=== PATIENT | female | born 1940 | race African-American/Black ===

== ENCOUNTER 2018-12-25 21:25 | Inpatient (IN) ==
[2018-12-25] MEDS ORDERED: ROCEPHIN 1 GM in NS 50 ML IV ONE (21:40)
--- NOTE | 2018-12-25 22:05 | PROVIDER DOCUMENTATION ---
This chart was entered by Lacy Kendrick Scribe, acting as scribe for Dasha James CRNP. HPI-Syncope/Dizziness - General Chief Complaint: Syncope Stated Complaint: Syncope Time Seen by Provider: 12/25/18 21:28 Source: patient, family Allergies/Adverse Reactions: Patient Allergies Allergy/AdvReac Type Severity Reaction Status Date / Time hydrocodone bitartrate * Allergy NAUSEA/VOMI Verified 12/25/18 14:47 [From Lortab] TING Sulfa (Sulfonamide Allergy NAUSEA/VOMI Verified 12/25/18 14:47 Antibiotics) TING Home Medications: Home Medication List Medication Instructions Recorded Confirmed Last Taken Type Donepezil HCl 5 mg PO DAILY 04/13/14 06/02/15 06/02/15 History Fluticasone Propionate [Flovent 50 mcg IH DAILY 04/13/14 06/02/15 06/02/15 History Diskus] Acetaminophen with Codeine 1 each PO Q6H PRN 06/02/15 06/02/15 06/02/15 History [Tylenol with Codeine #3] Amlodipine Besylate [Norvasc] 10 mg PO DAILY 06/02/15 06/02/15 06/02/15 History Loratadine [Claritin] 10 mg PO DAILY 06/02/15 06/02/15 06/02/15 History Nebivolol [Bystolic] 5 mg PO DAILY 06/02/15 06/02/15 06/02/15 History Omeprazole 40 mg PO DAILY 06/02/15 06/02/15 06/02/15 History Amoxicillin/Potassium Clav 1 ea PO BID #20 tab 07/05/17 Unknown Rx [Augmentin 875-125 Tablet] Levofloxacin [Levaquin] 500 mg PO DAILY #7 tab 12/25/18 Unknown Rx - History of Present Illness-Syncope/Dizzy Nature of Presenting Problem: 78 yof presents w/daughter at bedside w/cc pt daughter is main historian (pt has hx of dementia). pt arrived via [facility] ems. pt has had trouble walking for 1 week, having tremors, headache, been confused, weakness, no appetite 4-5 days and abd soreness. pt was seen earlier today, in ED, for similar symptoms, given lisinopril and metoprolol for bp and diagnosed w/uti. daughter reports they stopped by pharmacy to get rx filled and when they arrived home (30 mins after leaving ED), patient was extremely weak and had difficulty getting out of vehicle. daughter reports patient got inside and went to go to the bathroom and became weak and passed out. daughter reports she was able to catch patient and ease her down so she did not hit her head. daughter is concerned because until 1 week ago, patient was able to ambulate with cane, and now not able to ambulate d/t weakness. per chart review, patient's PCP was consulted earlier today regarding plan of care and requested patient be d/c'd home and follow up with PCP tomorrow. blood sugar per EMS 170. If witnessed syncope, by whom?: Daughter Prior Episodes: reports: no prior history Onset/Duration: reports: this afternoon Timing: reports: still present Position/Activity at time of episode: reports: standing Symptoms prior to episode: reports: lightheaded Context: reports: lost consciousness. denies: incontinent of urine, incontinent of stool, breathing stopped Loss of Consciousness: brief (seconds) Location of injury. (If syncope resulted in an injury.): reports: none Current Symptoms: reports: weakness, dizzy Similar symptoms previously: reports: workup for same problem Recently Seen Here or By Another Healthcare Provider: Yes (Seen this afternoon for similar complaints) - Dizziness Severity in ED: reports: moderate Dizziness Related Current/Associated Symptoms: reports: weakness, lightheaded Any recent trauma/injury?: reports: none Modifying Factors: improves with: lying down. worse with: standing position Patient usually:: reports: uses a cane Review of Systems - Adult - REVIEW OF SYSTEMS - ADULT Constitutional: reports: see HPI, fatique, other (weakness, confusion). denies: chills, fever, night sweats Eyes: reports: no symptoms reported Ears, Nose, Mouth & Throat: reports: no symptoms reported. denies: ear pain, epistaxis, sinus problem, hoarseness, throat pain Cardiovascular: reports: no symptoms reported. denies: chest pain, orthopnea, palpitations Respiratory: reports: no symptoms reported. denies: dyspnea on exertion, pleurisy, shortness of breath Gastrointestinal: reports: see HPI, abdominal pain (ruq), poor appetite. denies: diarrhea, nausea, rectal bleeding, vomiting Genitourinary: reports: no symptoms reported Musculoskeletal: reports: no symptoms reported Integumentary: reports: see HPI, other (clammy to touch). denies: mole changes, nail changes, rash Neurological: reports: see HPI, headache/migraines, loss of balance, syncope, tremors. denies: numbness, seizure, slurred speech Psychiatric: reports: no symptoms reported Endocrine: reports: no symptoms reported All Other Systems: Reviewed and Negative Past History - Adult - PAST MEDICAL HISTORY-ADULT Review of Records: reports: Old Records Reviewed, Nursing Assessment Review, Medications Reviewed, Social history reviewed & non-contributory. Major Childhood Illnesses: reports: denies history Cardiovascular: reports: HTN Respiratory: reports: denies history Gastrointestinal: reports: denies history Obstetrical/Gynecological: reports: denies history Genitourinary: reports: dialysis Musculoskeletal: reports: denies history Neurological: reports: dementia Endocrine/Immune: reports: anemia, Diabetes (borderline) Other Conditions: reports: denies history - PRIOR SURGERIES/PROCEDURES Surgical/Procedure History: reports: cholecystectomy, hysterectomy, back/neck - PRIOR HOSPITALIZATIONS Prior Hospitalizations: reports: none - IMMUNIZATION STATUS Childhood Immunizations: See Nurse Assessment Flu Vaccine: See Nurse Assessment - FAMILY HISTORY Family History: reviewed, not pertinent - SOCIAL HISTORY Smoking: non-smoker Substance Use: none/never Living Situation: alone (Has caregiver during the day) Physical Exam-General - PHYSICAL EXAM-ADULT Initial Vital Signs Reviewed: Yes - CONSTITUTIONAL General Appearance: alert, mild distress, thin. negative: lethargic, slow to respond, obtunded - EYES Eyes: PERRL/EOMI, pink conjunctivae - HEAD, EARS, NOSE, MOUTH & THROAT HENMT: normocephalic/atraumatic, moist mucous membranes - NECK Neck: full range of motion, supple, normal inspection - RESPIRATORY Respiratory: chest non-tender, lungs clear, normal breath sounds, no pleuratic chest pain, no respiratory distress, no accessory muscle use - CARDIOVASCULAR Cardiovascular: no gallop, no murmur, bradycardia (59) - GASTROINTESTINAL (ABDOMEN) Abdominal Exam: normal bowel sounds, soft, no organomegaly, no pulsatile mass, tenderness (mild TTP RUQ). negative: non tender, abdominal bruit, abnormal bowel sounds, distended, guarding, rigid, rebound, Means's sign - LYMPHATIC Lymphatic: no adenopathy - MUSCULOSKELETAL Back Exam: normal inspection, no vertebral tenderness Extremity: non-tender, normal inspection Peripheral Pulses: radial (R): 2+, radial (L): 2+ - SKIN Integumentary: normal color, normal turgor, warm/dry - NEUROLOGIC Neurologic: grossly normal, no motor/sensory deficits - PSYCHIATRIC Psych/Mental Status: normal mood/affect, normal thought content, normal thought process, oriented x 3 Progress - PLAN OF CARE/RESULTS Progress/Plan/Lab Results: Vital Signs - 8 hr 12/25/18 22:58 Temperature 98.3 F Pulse Rate 56 L Respiratory Rate 18 Blood Pressure 177/78 O2 Sat by Pulse Oximetry 99 Laboratory Results - last 24 hr 12/25/18 21:51 POC Glucose 163 H Orders Category Date Time Status Resuscitation Status Routine Care 12/25/18 23:[address] HEAD W/O CONTRAST [CT] Stat Exams 12/25/18 23:24 Taken 0.9% Sodium Chloride Inj [Ns] 500 ml Med 12/25/18 22:06 Discontinued IV 999 mls/hr CefTRIAXONE [Rocephin] 1 gm Med 12/25/18 21:40 Discontinued 0.9% Sodium Chloride Inj [Ns] 50 ml IV NOW EKG [EKG] Stat Ther 12/25/18 21:40 Ordered Transfer/Admit Order [TRANSFER] Routine Transfer 12/25/18 23:26 Ordered - EKG 1 Time of EKG reading by physician:: 22:56 EKG Read and Signed by:: Goran Clements EKG Interpretation (*Must complete 3 of following elements*): Abnormal (Borderline) Rate: 55 Rhythm: SB w/ short CO [place]: normal QRS: LVH (moderate voltage criteria for LVH, may be normal variant) CO Interval: shortened ST Wave: normal - CT/MRI 1 CT Study: Head Impression: See EMR Report ("No acute intracranial abnormalities.") - CONSULTS/PCP/HOSPITALIST Notification #1 *Consult/PCP/Hospitalist*: Derrick Hughesist Time Discussed: 23:20 Reason/Comments: Syncope, weakness, UTI Consult Disposition: Admit Departure - Departure Date of Disposition Decision: 12/25/18 Time of Disposition Decision: 23:20 DIAGNOSIS: Weakness UTI (urinary tract infection) Qualifiers: Urinary tract infection type: site unspecified Hematuria presence: without hematuria Qualified Code(s): N39.0 - Urinary tract infection, site not specified Syncope Qualifiers: Syncope type: unspecified Qualified Code(s): R55 - Syncope and collapse Disposition: ADMITTED INPATIENT 09 Certified Medical Emergency: Emergent Condition: Stable Referrals and Follow-Ups: None,PCP [Primary Care Provider] - Jin Santamaria MD [ACTIVE STAFF PHYSICIAN] - Work Excuses: Return to School/Parent Work - Critical Care Note This patient required my direct & personal management of CC.: No Attestation - Physician/ CARLOS Attestation Patient care was provided by Advanced Practice Provider:: Yes Advanced Practice Provider:: Dasha James Advanced Practice Provider documentation review:: The Mid-level provider documentation, treatment plan and medical decision making was reviewed by the physician who agrees with all treatment and medical decision making by the MLP. The physician spent face to face time with patient:: No Advanced Practice Provider documentation review:: Supervising physician onsite and consulted in the evaluation and care of this patient. The physician did not have a face to face encounter with the patient. This chart was documented by the indicated scribe, (Lacy Kendrick Scribe) and accurately reflects the services I performed and decisions made by me, Dasha James CRNP, as attested by the provider's signature.
[2018-12-25] MEDS ORDERED: NS 500 ML IV ONE (22:06)
[2018-12-26] MEDS ORDERED: NS 1,000 ML IV ONE (01:15)
--- NOTE | 2018-12-26 04:20 | EKG Report ---
Test Performed on : 12/25/2018 10:55:04 PM Test Reason : SB Blood Pressure : / mmHG Vent. Rate : 055 BPM Atrial Rate : 055 BPM P-R Int : 110 ms QRS Dur : 086 ms QT Int : 498 ms P-R-T Axes : 056 029 074 degrees QTc Int : 476 ms Sinus bradycardia. with short ME Moderate voltage criteria for LVH, may be normal variant Borderline ECG When compared with ECG of 18-AUG-2011 08:06, T wave amplitude has decreased in Anterior leads Confirmed by James LEIJA, Zafar ([id number]), proposal editor Cee Redding ([id number]) on 12/30/2018 1:55:21 PM
--- NOTE | 2018-12-26 05:59 | Diag Imaging Result Doc PS360 ---
EXAM: CT HEAD W/O CONTRAST HISTORY: Syncope TECHNIQUE: CT brain without contrast COMPARISON: None. FINDINGS: No parenchymal hemorrhage. No epidural or subdural hematoma. No subarachnoid hemorrhage. There are chronic microvascular ischemic changes. No mass identified on this noncontrasted exam. No hydrocephalus. Left maxillary mucosal thickening.. IMPRESSION: 1.No hemorrhage 2.Chronic microvascular ischemic changes 3.A preliminary report was given at 12:19 AM This exam was performed using automated exposure control, adjustment of mA or kV according to patient size, and/or use of iterative reconstruction technique. Electronically signed by Jose Castellon 12/26/2018 5:57 AM
[2018-12-26 06:53] LABS: BASO# 0.01 X1000 (0.0-0.2); BASO% 0.1 % (0.0-0.8); EOS# 0.01 X1000 (0.0-0.7); EOS% 0.1 % (0.0-10.0); HEMATOCRIT 37.4 % (37.0-47.0); HEMOGLOBIN 11.5 g/dL (12.0-16.0); IMM GRAN# 0.01 X1000 (0.0-0.04); IMM GRAN% 0.1 % (0.0-0.5); LYMPH# 2.89 X1000 (1.2-3.4); LYMPH% 43.3 % (20.5-51.1); MCH 27.4 PG (27-31); MCHC 30.7 g/dL (33-37); MONO# 0.86 X1000 (0.11-0.59); MONO% 12.9 % (1.7-9.3); MPV 11.1 FL (7.4-10.4); NEUT% 43.5 % (42.2-75.2); PLT 136 X1000 (130-400); RDW 15.4 % (11.5-14.5); WBC 6.68 X1000 (4.8-10.8)
[2018-12-26 07:26] LABS: ALBUMIN 3.6 g/dL (3.5-5.0); CALCIUM 8.5 mg/dL (8.8-10.2); POTASSIUM 4.1 mmol/L (3.5-5.1); TOTAL BILIRUBIN 0.2 mg/dL (0.20-1.00); TOTAL PROTEIN 6.3 g/dL (6.3-8.3)
--- NOTE | 2018-12-26 09:06 | Diag Imaging Result Doc PS360 ---
EXAM: CHEST-PORTABLE HISTORY: syncope TECHNIQUE: Single view of the chest was performed portably. COMPARISON: 06/02/2015 FINDINGS: The cardiomediastinal silhouette is within normal limits. The pulmonary vasculature is not congested. No infiltrate, effusion, or pneumothorax is appreciated. There are degenerative changes bilateral shoulders and postsurgical change right shoulder. IMPRESSION: No acute cardiopulmonary abnormality is identified. Electronically signed by Erin Espinosa 12/26/2018 9:04 AM
[2018-12-26] MEDS: ARICEPT PO SCH ×2 (09:20→20:19)
[2018-12-26] MEDS: PRINIVIL PO SCH (09:20)
[2018-12-26] MEDS: NAMENDA XR PO SCH (09:20)
[2018-12-26] MEDS: LEXAPRO PO SCH (09:21)
[2018-12-26] MEDS: TOPROL XL PO SCH (09:21)
[2018-12-26] MEDS: FOLIC ACID PO SCH (09:21)
[2018-12-26] MEDS: ROCEPHIN 1 GM in NS 50 ML IV SCH (09:21)
--- NOTE | 2018-12-26 10:13 | HISTORY AND PHYSICAL ---
PRIMARY CARE PHYSICIAN: Dr. Jin Santamaria CHIEF COMPLAINT: Syncope. HISTORY OF PRESENT ILLNESS: Ms. Bailey is a pleasant 78-year-old female with a history of hypertension, dementia of Alzheimer's type, severe osteoarthritis, and folate deficiency, who presents with syncope. She actually came to the ER here at [facility] earlier yesterday for weakness in the lower extremities and inability to walk. She was ultimately diagnosed with a urinary tract infection and acute hypertension and was discharged with antibiotics and antihypertensives. She was taken home by her daughters, and when she did get home, she got out of the car and was again dizzy and weak. They took her into the house, and she was able to sit down on the commode and go to the bathroom; however, when she stood up and started walking away, she lost consciousness and fell. Her daughters were there and were able to catch her, and they witnessed the event. They report that she was unconscious for about 10 minutes but always had a pulse and was breathing on her own. They called 911, and she was brought to the ER here at which time she had a head CT done which did not show anything acute. Her laboratory data was also unremarkable. She is fairly hypertensive, however, with blood pressure ranging from the 170s to 190s systolically and is slightly bradycardic in the 50s. Currently she complains of dysuria and urinary retention. She has not had any urine out this morning despite being on IV fluids. She denies any chest pain or fever. No shortness of breath. No lower extremity edema or orthopnea. Prior to losing consciousness, she did report some dizziness but no chest pain. She did not hit her head or have any loss of bowel or bladder continence. She will be admitted for further treatment and evaluation. PAST MEDICAL HISTORY: 1. Alzheimer's type dementia. 2. Hypertension. 3. Folate deficiency. PAST SURGICAL HISTORY: She has had a right rotator cuff repair, hysterectomy, cholecystectomy, partial colon resection due to small bowel obstruction, and lumbar spine surgery. She has also had an L spine stimulator for pain. SOCIAL HISTORY: She lives at home alone, but she has a daily caregiver, and one of her daughters stays with her on a daily basis. She is . There is no tobacco, alcohol or drug use. FAMILY HISTORY: Noncontributory. REVIEW OF SYSTEMS: Limited; however, a 10-point review of systems was obtained and found to be negative with the exception of the HPI. HOME MEDICATIONS: Aricept 10 mg b.i.d., folic acid 1 mg daily, Lexapro 10 mg daily, memantine 28 mg p.o. daily, Seroquel 50-100 mg p.o. at bedtime, Toprol-XL 50 mg daily, Levaquin 500 mg p.o. daily for 7 days. ALLERGIES: Hydrocodone and sulfonamides. PHYSICAL EXAMINATION: VITAL SIGNS: Blood pressure is 176/63, heart rate 60, respiratory rate 18, O2 saturation is 100% on room air, temperature is 97.9. GENERAL: This is an elderly 78-year-old female lying in hospital bed in no acute distress. NEUROLOGICAL: She is awake and alert, however, confused to time and place. She follows commands without focal deficits. Random alternating movements in the hands are sluggish. She also has somewhat of a resting tremor. HEENT: Head is atraumatic and normocephalic. Pupils are equal, round and reactive to light. Oral mucosa is slightly dry. NECK: Trachea is midline. There is no JVD. CHEST: Clear to auscultation bilaterally. CARDIOVASCULAR: Regular rate and rhythm. S1 and S2 noted. GASTROINTESTINAL: Soft, nondistended. Slightly tender in the suprapubic area. Bowel sounds are active. EXTREMITIES: No edema. Pulses 1+ bilaterally. DIAGNOSTIC DATA: Chest x-ray is negative. Head CT with chronic changes, nothing acute. EKG shows sinus bradycardia with nonspecific T changes. WBC is 6.68, hemoglobin 11.5, hematocrit 37.4, platelet count 136. Sodium is 144, potassium 4.1, chloride 109, CO2 is 25, anion gap 10, BUN is 23, creatinine 1, glucose 109. LFTs negative. Protein 6.3, albumin 3.6. ASSESSMENT AND PLAN: 1. Syncope. Appears to be volume mediated or possibly vasovagal. She has no focal deficits. No chest pain. She is slightly dehydrated on physical exam, and her daughters report that she rarely drinks water. She does have evidence of urinary retention which could be exacerbating the issue. We will check cardiac enzymes and hydrate her. We will also treat underlying urinary retention and urinary tract infection. 2. Urinary tract infection and urinary retention. We are checking a bladder scan now and will likely place a Aviles catheter and check a renal ultrasound to make sure there is no obstruction. Continue IV fluids. We will evaluate all of her home medications to make sure there is none that cause urinary retention. 3. Hypertension. Continue antihypertensives. Add p.r.n. if necessary intravenously. 4. Dementia. Stable. Continue home medications. 5. DVT prophylaxis with Lovenox. Further recommendations to follow. Dictated by JARETT Liang for Fitz Brown MD cc: JARETT Liang MD Micah A. Howard, MD [facility] HOSPITALGr[facility]
[2018-12-26] MEDS: LOVENOX SUBQ SCH (10:17)
[2018-12-26 10:21] LABS: HEMOGLOBIN A1C 6.2 % (4.8-6.0)
--- NOTE | 2018-12-26 14:17 | Diag Imaging Result Doc PS360 ---
EXAM: US RENAL 2 (RETROPER) COMPLETE HISTORY: urinary retention TECHNIQUE: Renal ultrasound COMPARISON: 04/13/2014 FINDINGS: The right kidney measures 6.8 x 4.2 x 4.3 cm. Normal renal echotexture. No stone or hydronephrosis. No mass. The urinary bladder is distended and is normal. The left kidney measures 7.4 x 4.3 x 5.3 cm. Normal cortical thickness. No stone or hydronephrosis. No solid renal mass. There is a small cyst in the lower pole. IMPRESSION: The kidneys measure small, but no other abnormality. Electronically signed by Jose Castellon 12/26/2018 2:14 PM
[2018-12-26] MEDS: APRESOLINE IV PRN (17:31)
[2018-12-26] MEDS ORDERED: SEROQUEL PO SCH (21:00)
--- NOTE | 2018-12-26 22:47 | PROGRESS NOTE ---
DATE: 12/26/2018 Patient presented to the hospital with a syncopal episode. Daughter notes that she is normally up walking, talking and no complaints. However, over the past 2 days she has had a decreased physical activity. Decreased mental alertness. She has been confused and had a syncopal episode. PLAN: We will admit patient to the hospital. Continue her home medications, follow her blood sugars, certainly appears as though she has sepsis likely from urinary tract source. We will place her on antibiotics and will follow. cc: Fitz Brown MD
[2018-12-27] MEDS: APRESOLINE IV PRN (05:32)
[2018-12-27] MEDS ORDERED: NS 1,000 ML IV SCH (06:30)
[2018-12-27 06:43] LABS: HEMATOCRIT 35.6 % (37.0-47.0); HEMOGLOBIN 11.3 g/dL (12.0-16.0); MCH 28.2 PG (27-31); MCHC 31.7 g/dL (33-37); MCV 88.8 FL (81-99); MPV 10.9 FL (7.4-10.4); RBC 4.01 XMIL (4.2-5.4); RDW 15.3 % (11.5-14.5); WBC 8.75 X1000 (4.8-10.8)
[2018-12-27 08:09] LABS: CALCIUM 8.8 mg/dL (8.8-10.2); CREATININE 1.1 mg/dL (0.5-0.9); POTASSIUM 3.8 mmol/L (3.5-5.1)
[2018-12-27] MEDS: TOPROL XL PO SCH (09:41)
[2018-12-27] MEDS: ARICEPT PO SCH (09:41)
[2018-12-27] MEDS: LEXAPRO PO SCH (09:41)
[2018-12-27] MEDS: PRINIVIL PO SCH (09:41)
[2018-12-27] MEDS: FOLIC ACID PO SCH (09:41)
[2018-12-27] MEDS: NAMENDA XR PO SCH (09:42)
[2018-12-27] MEDS: LOVENOX SUBQ SCH (09:45)
[2018-12-27] MEDS: ROCEPHIN 1 GM in NS 50 ML IV SCH (10:01)
[2018-12-27 12:34] VITALS: BP 142/50
[2018-12-27 15:23] LABS: BILIRUBIN URINE NEGATIVE (NEGATIVE); BLOOD URINE NEGATIVE (NEGATIVE); CLARITY CLEAR (CLEAR); COLOR YELLOW; GLUCOSE URINE NEGATIVE (NEGATIVE); KETONE URINE TRACE mg/dL (NEGATIVE); LEUKOCYTES URINE TRACE (NEGATIVE); NITRITE URINE NEGATIVE (NEGATIVE); PH URINE 6.5; PROTEIN URINE NEGATIVE (NEGATIVE); SP GRAVITY URINE 1.015; UROBILINOGEN URINE NORMAL
[2018-12-27 15:31] LABS: URINE SOURCE CLEAN CATCH
[2018-12-27 15:32] LABS: URINE BACTERIA 1+ /HFP; URINE CAST NONE SEEN /LPF; URINE CRYSTAL NONE SEEN /HPF; URINE EPITHELIAL CELLS >10 /HPF (<10); URINE RBC <10 /HPF (<10); URINE WBC <10 /HPF (<10); URINE YEAST NONE SEEN /HPF
--- NOTE | 2018-12-27 21:02 | DISCHARGE SUMMARY ---
ADMISSION DATE: 12/26/2018 DISCHARGE DATE: 12/27/2018 DISCHARGE DIAGNOSES: 1. Dementia. 2. Syncope. 3. Hypertension. 4. Folate deficiency. 5. 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 6. Adult failure to thrive. CONSULTATIONS: None. PROCEDURES: None. BRIEF HOSPITAL COURSE: The patient is a 78-year-old female who presented to the hospital secondary to a syncopal episode, which the daughter had noted that she was unconscious for 10 minutes. Thankfully, all of her labs everything was normal. I am unsure if this was 10 minutes by the clock or 10 minutes by perception. She has had zero episodes of syncope during the hospital. The daughter now notes that Ms. Bailey has had continued gradual decline in her memory and as of late, seems to be worse. She seems to be more combative, agitated at night. As all of her labs have been normal, telemetry has been normal. We will discharge Ms. Bailey home. Certainly afraid that if we keep her in the hospital another night for no more than observation, that we will have to sedate Ms. Bailey, which I do not believe will be in her best interest. DISPOSITION: She will be discharged home. She will follow up outpatient with her primary care as needed. Discussed with the family the usual course of Alzheimer's type dementia and attempted to answer questions. TIME SPENT: Greater than 30 minutes was spent in total care. cc: Fitz Brown MD
--- NOTE | 2018-12-28 07:42 | DISCHARGE SUMMARY ---
ADMISSION DATE: 12/26/2018 DISCHARGE DATE: 12/27/2018 ADMISSION DIAGNOSIS: 1. Syncope. 2. Urinary tract infection and urinary retention. 3. Hypertension. 4. Dementia. DISCHARGE DIAGNOSIS: 1. Syncope. 2. Urinary tract infection and urinary retention. 3. Hypertension. 4. Dementia. CONSULTATIONS: None. DIAGNOSTIC PROCEDURES AND FINDINGS: EKG 12/25/2018: Sinus bradycardia, nonspecific ST changes. Head CT 12/25/2018: No hemorrhage. Chronic microvascular changes. Nothing acute. Renal ultrasound 12/26/2018: Kidneys measure small but no acute abnormality. HOSPITAL COURSE: Mrs. Bailey is a 78-year-old -N[place]alese female with dementia, who came to our ER for weakness in her lower extremities. She was diagnosed with UTI and acute hypertension 1 day prior to admission but came back for weakness, dizziness, and syncope for what was reported to as 10 minutes in duration, 911 was called. She was brought to the hospital. Head CT was done, which did not show anything acute. She did have some urinary retention and was ordered to have a Aviles catheter, however, she began spontaneously urinating, which relieved her symptoms of mild suprapubic pain. We continued IV fluids, antibiotics for UTI. Her symptoms improved. Today, she is feeling much better. Cardiac enzymes have all been negative. She is now stable for discharge home. DISCHARGE MEDICATIONS: Lexapro 10 mg daily, folic acid 1 mg daily, Seroquel 50-100 mg p.o. at bedtime, Aricept 10 mg b.i.d., memantine 28 mg p.o. daily, metoprolol XL 50 mg daily, Omnicef 300 mg p.o. b.i.d. for 5 more days. DISCHARGE DIET: Heart healthy. DISCHARGE ACTIVITY: Resume activity as tolerated. DISPOSITION AND OTHER DISCHARGE INSTRUCTIONS: The patient is discharged home. She is to follow up with her PCP within 1-2 weeks or sooner if needed. She is to continue all medications as directed, return to the ER or call 911 for worsening complaints or concerns. All questions answered. DISCHARGE TIME: Greater than 35 minutes. Dictated by JARETT Liang for Fitz Brown MD cc: JARETT Liang MD Micah A. Howard, MD
== END 2018-12-27 15:32 | disposition home or self-care (01) | DRG 312 ==
LOC: P.ED 21:25 → SUATTDRO 12-26 00:48 → P.MEDSURG 12-26 00:48
PROVIDERS: ATTEND Family Medicine
CPT/HCPCS: 70450; 71010; 71045; 76770; 80048; 80053; 81001; 82550; 82607; 82746; 82948; 83036; 84443; 84484; 85025; 85027; 87088; 93005; 96372; 97162; 97530; 99283; 99285; A9270; J0360; J0696; J1650; J7030; J7040; XXXXX